=== PATIENT | female | born 1995 | race Caucasian/White ===

== ENCOUNTER 2018-01-24 23:24 | Emergency (ER) | payer BC ==
[~2018-01-24] VITALS: Ht 165.1 cm; Wt 61.2 kg
--- NOTE | 2018-01-25 00:01 | NUR ---
DR ADRIEL PEREZ MD AT BEDSIDE FOR MSE.
--- NOTE | 2018-01-25 00:04 | NUR ---
PT REFUSES BLOOD WORK AND CHEST XRAY. STATES SHE WANTS TO GO HOME. AWARE.
--- NOTE | 2018-01-25 00:12 | NUR ---
Patient discharged to home in stable conditon. Written and verbal after care instructions given. Patient verbalizes understanding of instructions. Pt ambulated from ER w/ setady gait accompanied by significant other. Pt denies CP or SOB at this time. No distress noted. Pt took all personal belongings.
[2018-01-25 00:14] VITALS: BP 107/64
== END 2018-01-25 00:15 | disposition home or self-care (01) ==
LOC: ER 23:29
DX: R07.9 Chest pain, unspecified (principal)
CPT/HCPCS: 93005